=== PATIENT | male | born 1935 | race Caucasian/White ===

== ENCOUNTER 2019-11-07 17:09 | Inpatient (IN) | payer MEDICARE ==
[2019-11-07] VITALS (13 sets, daily range): BP systolic 137–182; BP diastolic 73–88
[~2019-11-07] VITALS: Ht 175.3 cm; Wt 60.6 kg
--- NOTE | ~2019-11-07 | EMS ---
[place] [address] EMS Patient Care Report Name: ZARIA VILLEDA Room: [address] IN [facility]#: [id number] Admission: 11/07/19 Attend Phys: Brody Conde Discharge: Date of : 37 Report #: [id number] THIS REPORT FOR: //name// Report Transmitted: 11/07/2019 22:32 EMS Care Summary [facility]ident [id number] @ 11/07/2019 16:35 Incident Location [address] [place] [address] Patient ZARIA VILLEDA Male, 84 Years 1935 Patient Address [address] [place] [address] Patient History Juarez's-Palsy,Myocardial Infarction (ID), Patient Allergies No known allergies, Patient Medications Metoprolol, Aspirin, Amlodipine, Ramipril, Chief Complaint "I think I got too hot" Disposition Transported [place] Reason Unconscious/Fainting Transported To [facility] Narrative Dispatched: Med 1 was toned for an unresponsive male, possible heat exhaustion. Chief Complaint/Condition: The patient was found seated in a chair in his living room. He was leaning to the left with notable [place] [address] EMS Patient Care Report Name: ZARIA VILLEDA Room: [address] IN [facility]#: [id number] Admission: 11/07/19 Attend Phys: Brody Conde Discharge: Date of : 37 Report #: [id number] facial droop. The patient had a left vision cut. The patient complained of "maybe getting too hot." History of Present Illness/Injury: According to family, the patient [place]. He and his entered their home around 16:00 when the noted he seemed, "off." She left the room and came back to find the patient leaning to the left and unresponsive. She called family and 911 at that time. Assessment: The patient was a male in his 80's, A/O x2, GCS 13 on initial contact. Airway patent, breathing clear, equal, and regular. CMS present with left sided paralysis noted. Skin pink, warm, and dry. Positive CPHSS and MEND Exam. See section for further. Reason for Ambulance: The patient was experiencing symptoms consistent with a stroke. He was transported to [facility] due to his age/heart history for Level 2 stroke care. Treatments: CPHSS/MEND Exam performed and found positive. EKG/12 lead performed with varying rhythms noted. See vitals section. IV therapy performed bilaterally. Blood draw performed. See section for further. Summary: Med 1 arrived on scene and performed patient assessment. Vitals obtained along with stroke scale. Patient found positive on scale. Patient information gathered and he was loaded into the ambulance via stretcher. Transport initiated emergent to [facility]. Further treatments and assessments were performed en route. [facility] informed Med 1 that they were experiencing high call volume. Family notified and transport redirected to [facility]. Report called with no further orders. The patient became more alert but still had deficits noted. The patient was delivered to CT upon arrival and sheet transferred. Report given to staff and signatures were obtained. Med 1 gathered paperwork and cleared the facility. Initial Vitals @16:55P: 82,R: 16,BP: 137/79,GCS: 13,SpO2: 96,Revised Trauma: 12, @17:20R: 18,BP: 143/85,GCS: 14,Revised Trauma: 12, @16:47BP: 140/64,GCS: 15,Glucose: 208,SpO2: 94, @17:10P: 81,R: 16,BP: 135/81,GCS: 14,SpO2: 96,Revised Trauma: 12, @17:15P: 77,R: 16,GCS: 14,SpO2: 94, @17:00P: 85,R: 16,GCS: 14, Assessments @16:41MENTAL:Confused,Person Oriented,Place Oriented,SKIN:HEENT:Head/Face: Facial Droop,Eyes: Left: Other,LUNG SOUNDS:ABDOMEN:PELVIS//GI:EXTREMITIES:Left Arm: Weakness,Left Arm: Paralysis,Left Leg: Paralysis,Left Leg: Weakness,PULSE:Radial: 1+ [place] [address] EMS Patient Care Report Name: ZARIA VILLEDA Johanna Room: [address] IN [facility]#: [id number] Admission: 11/07/19 Attend Phys: Brody Conde Discharge: Date of : 37 Report #: [id number] Thready,NEURO:Weakness Left-Sided,Slurred Speech,Abnormal Gait,Facial Droop,@17:10MENTAL:Person Oriented,Event Oriented,Place Oriented,Other,SKIN:HEENT:Head/Face: Facial Droop,Eyes: Left: Other,LUNG SOUNDS:ABDOMEN:PELVIS//GI:EXTREMITIES:Left Arm: Paralysis,Left Arm: Weakness,Left Leg: Paralysis,Left Leg: Weakness,PULSE:Radial: 1+ Th[place],NEURO:Weakness Left-Sided,Facial Droop,Slurred Speech, Impression Stroke Procedures @17:09Oxygen FlowRate: 2 Device: Nasal Cannula (NC) Response: ImprovedSucceeded@17:16Saline Lock 10cc (20 ga) Site: Antecubital-LeftResponse: UnchangedSucceeded@17:02Saline Lock 10cc (18 ga) Site: Hand-RightResponse: UnchangedSucceeded@17:03 cc (18 ga) Site: Hand-RightResponse: UnchangedSucceeded@17:09Stroke AlertResponse: Unchanged@17:0012-Lead ECGResponse: UnchangedSucceeded@16:41ALS AssessmentResponse: UnchangedSucceeded Timeline 16:35,Call Received 16:35,Dispatched 16:36,En Route 16:40,On Scene 16:41,At Patient 16:41,ALS Assessment,Response: UnchangedSucceeded, 16:47,BP: 140/64 M,PULSE: ,RR: R,SPO2: 94 Ox,ETCO2: ,B,PAIN: ,GCS: 15, 16:52,Depart Scene 16:55,BP: 137/79 M,PULSE: 82,RR: 16 R,SPO2: 96 Ox,ETCO2: ,BG: ,PAIN: ,GCS: 13, 17:00,12-Lead ECG,Response: UnchangedSucceeded, 17:00,BP: / M,PULSE: 85,RR: 16 R,SPO2: Ox,ETCO2: ,BG: ,PAIN: ,GCS: 14, 17:02,Saline Lock 10cc 18 ga Site: Hand-Right,Response: UnchangedSucceeded, 17:03, cc 18 ga Site: Hand-Right,Response: UnchangedSucceeded, 17:09,Stroke Alert,Response: Unchanged 17:09,Oxygen FlowRate: 2 Device: Nasal Cannula (NC) Response: ImprovedSucceeded, 17:10,BP: 135/81 M,PULSE: 81,RR: 16 R,SPO2: 96 Ox,ETCO2: ,BG: ,PAIN: ,GCS: 14, 17:15,BP: / M,PULSE: 77,RR: 16 R,SPO2: 94 Ox,ETCO2: ,BG: ,PAIN: ,GCS: 14, 17:16,Saline Lock 10cc 20 ga Site: Antecubital-Left,Response: UnchangedSucceeded, 17:19,At Destination 17:20,BP: 143/85 M,PULSE: ,RR: 18 R,SPO2: Ox,ETCO2: ,BG: ,PAIN: ,GCS: 14, 17:59,Call Closed Disclaimer v1.1 Copyright 2020 [employer] This EMS Care Summary contains data elements from the applicable legal record (which may be displayed differently). It is [place] [address] EMS Patient Care Report Name: ZARIA VILLEDA Room: [address] IN [facility]#: [id number] Admission: 11/07/19 Attend Phys: Brody Conde Discharge: Date of : 37 Report #: [id number] information for the following purposes: continuity of care, clinical quality, and state data reporting. The complete legal record is available to ED staff and administrators of the receiving hospital in [facility]'s Patient Tracker. All data is provided "as is."
--- NOTE | 2019-11-07 17:25 | NUR ---
CODE STROKE ACTIVATED FROM THE FIELD AT 1707. SEE CODE STROKE PAPERWORK.
[2019-11-07 17:39] LABS: ABSOLUTE BASOPHILS 0.1 thou/uL (0.0-0.2); ABSOLUTE LYMPHOCYTES 1.1 thou/uL (0.8-5.3); ABSOLUTE MONOCYTES 1.1 thou/uL (0.0-1.2); ABSOLUTE NEUTROPHILS 10.4 thou/uL (1.6-8.1); BASOPHILS 0.8 %; EOSINOPHILS 0.2 %; HEMATOCRIT 44.4 % (42.0-52.0); HEMOGLOBIN 14.9 gm/dL (14.0-18.0); LYMPHOCYTES 8.6 %; MCH 30.7 pg (26.0-34.0); MCHC 33.5 g/dL (28.0-37.0); MCV 91.7 fL (80.0-100.0); MONOCYTES 8.5 %; MPV 8.1 fl. (7.2-11.1); NUCLEATED RBCS 0 /100WBC; PLATELET COUNT* 208 thou/uL (150-400); POLYS 81.9 %; RBC 4.84 mil/uL (4.50-6.00); RDW-CV 16.1 % (10.5-14.5); WBC 12.7 thou/uL (4.0-11.0)
[2019-11-07 17:48] LABS: CALCIUM 9.9 mg/dL (8.5-10.1); CREATININE 1.7 mg/dL (0.6-1.3); POTASSIUM 4.7 mmol/L (3.5-5.1)
[2019-11-07 17:49] LABS: APTT 28.2 Seconds (25.0-31.3); INR 1.1; PROTIME 11.2 Seconds (9.20-11.50)
[2019-11-07] MEDS ORDERED: NORVASC 2.5 MG2.5 M1 PO (17:49)
[2019-11-07] MEDS ORDERED: METOPROLOL SUCC50 MG PO (17:49)
[2019-11-07] MEDS ORDERED: ASA81BEC PO (17:49)
[2019-11-07] MEDS ORDERED: ALTACE 1.25 M1.25 MG PO (17:50)
[2019-11-07 17:57] LABS: ALBUMIN 3.6 g/dL (3.4-5.0); TOTAL BILIRUBIN 0.6 mg/dL (<0.1-1.0); TOTAL PROTEIN 6.9 g/dL (6.4-8.2)
--- NOTE | 2019-11-07 21:00 | NUR ---
PT. ADMITTED TO BED 5 AT 1945. ALERT AND ORIENTED 84 YEAR OLD MALE POST CVA/POST TPA. LEFT SIDED WEAKNESS NOTED-SEE ASSESSMENT. ORIENTED TO ROOM, CALL LIGHT. WILL CONTINUE TO MONITOR.
[2019-11-08] VITALS (24 sets, daily range): BP systolic 125–177; BP diastolic 68–101
--- NOTE | 2019-11-08 05:11 | NUR ---
DR. RIZZO IN TO ASSESS PT. THIS SHIFT. WANTED STAT MRI, PT. 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 STATED HE HAS ALSO HAD A AAA. INFORMED THIS NURSE THAT HE DOES NOT SMOKE AND HASN'T SMOKED FOR 20+ YEARS AND HE DRINKS [address] RIZZO IN, PT. STATED HE SMOKES 2 CIGARETTES DAILY AND IS A "CLOSET SMOKER", ALSO STATED TO DR. RIZZO HE DRINKS "A COUPLE BEERS A DAY". THIS RN CALLED AND LEFT VOICEMAIL FOR HIS , NOEMY, AND GAVE CALL BACK INFORMATION. DR. RIZZO STATED HE WOULD LIKE TO GET A HISTORY FROM THE BEFORE MRI IS DONE. WILL CONTINUE TO MONITOR.
--- NOTE | 2019-11-08 05:15 | NUR ---
PT. CONTINUES TO MISS URINAL AND HAS REQUIRED 2 BED CHANGES. INFORMED PT. TO USE CALL LIGHT SO NURSE CAN HELP ASSIST. VERBAL UNDERSTANDING STATED.
[2019-11-08 08:39] LABS: ALBUMIN 3.6 g/dL (3.4-5.0); ALKALINE PHOSPHATASE 84 U/L (46-116); ANION GAP 10 mmol/L (7-16); BUN 17 mg/dL (7-18); CALCIUM 9.7 mg/dL (8.5-10.1); CHLORIDE 104 mmol/L (98-107); CHOLESTEROL 152 mg/dL (<200); CO2 25 mmol/L (21-32); GLUCOSE 111 mg/dL (70-99); HDL CHOLESTEROL 84 mg/dL (>40); LDL CHOLESTEROL 58 mg/dL (<100); SGOT 23 U/L (15-37); SGPT 22 U/L (30-65); SODIUM 139 mmol/L (136-145); TC:HDL 1.8 Ratio (Not establshd); TOTAL BILIRUBIN 0.8 mg/dL (<0.1-1.0); TOTAL PROTEIN 6.9 g/dL (6.4-8.2); TRIGLYCERIDE 52 mg/dL (<150); VLDL 10 mg/dL (<40)
[2019-11-08 08:40] LABS: SERUM ASSESSMENT Clear
--- NOTE | 2019-11-08 10:49 | EKG ---
[place] [address] ELECTROCARDIOGRAM REPORT Name: ZARIA VILLEDA Room: [address] ADM IN .R.#: [id number] Admission: 11/07/19 Attend Phys: Adriel Hernandez Discharge: Date of : 37 Date of Service: 11/07/19 1841 Report #: [id number] THIS REPORT FOR: //name// [facility] ED Test Date: 2019-11-07 Test Time: 18:41:42 Pat Name: ZARIA VILLEDA Department: Room: [facility] Gender: M Zinc Chloride Operator: NISHANT : 1935 Requested By: Chidi Modi Order Number: [id number] MD: Leon Holguin Measurements Intervals [place] Rate: 71 P: 0 IN: 31 QRS: 62 QRSD: 151 T: 38 QT: 484 QTc: 527 Interpretive Statements sinus rhythm with pac's artifact noted nonspecific intraventricular conduction defect No previous ECG available for comparison Electronically Signed On 11-08-2019 10:48:52 CDT by Leon Holguin [email or web address] <ELECTRONICALLY SIGNED> By: Leon Holguin MD, [facility] 11/08/19 1048 1841 1841 Leon Holguin MD, [facility] /EPI
--- NOTE | 2019-11-08 10:50 | EKG ---
[place] [address] ELECTROCARDIOGRAM REPORT Name: ZARIA VILLEDA Room: [address] ADM IN .R.#: [id number] Admission: 11/07/19 Attend Phys: Adriel Hernandez Discharge: Date of : 37 Date of Service: 11/07/191856 Report #: [id number] THIS REPORT FOR: //name// [facility] ED Test Date: 2019-11-07 Test Time: 18:57:36 Pat Name: ZARIA VILLEDA Department: Room: [address] Gender: M Parts Consultant: TONNY : 1935 Requested By: Chidi Modi Order Number: [id number] Reading MD: Leon Holguin Measurements Intervals [place] Rate: 58 P: 105 MD: 140 QRS: 49 QRSD: 136 T: 4 QT: 454 QTc: 446 Interpretive Statements atrial fibrillation artifact noted Nonspecific intraventricular conduction delay Borderline repolarization abnormality Electronically Signed On 11-08-2019 10:49:55 CDT by Leon Holguin [email or web address] <ELECTRONICALLY SIGNED> By: Leon Holguin MD, [facility] 11/08/19 1049 56 56 eLon Holguin MD, FAC /EPI
[2019-11-08 13:00] LABS: ABSOLUTE MONOCYTES 0.8 thou/uL (0.0-1.2); ABSOLUTE NEUTROPHILS 8.4 thou/uL (1.6-8.1); BASOPHILS 0.3 %; EOSINOPHILS 0.3 %; HEMATOCRIT 32.7 % (42.0-52.0); LYMPHOCYTES 9.4 %; MCHC 33.6 g/dL (28.0-37.0); MCV 92.2 fL (80.0-100.0); MONOCYTES 7.7 %; MPV 7.7 fl. (7.2-11.1); NUCLEATED RBCS 0 /100WBC; POLYS 82.3 %; RBC 3.54 mil/uL (4.50-6.00); RDW-CV 15.9 % (10.5-14.5); WBC 10.2 thou/uL (4.0-11.0)
[2019-11-08 13:01] LABS: PLATELET COUNT* 119 thou/uL (150-400)
[2019-11-08 13:12] LABS: BUN 9 mg/dL (7-18); CHLORIDE 122 mmol/L (98-107); CO2 14 mmol/L (21-32); CREATININE 0.3 mg/dL (0.6-1.3); GLUCOSE 57 mg/dL (70-99)
[2019-11-08 13:13] LABS: ANION GAP 12 mmol/L (7-16); SODIUM 148 mmol/L (136-145)
[2019-11-08 13:15] LABS: CALCIUM < 5.0 mg/dL (8.5-10.1); POTASSIUM 1.5 mmol/L (3.5-5.1)
[2019-11-08 14:03] LABS: ALBUMIN 3.1 g/dL (3.4-5.0); CREATININE 0.9 mg/dL (0.6-1.3); TOTAL BILIRUBIN 0.8 mg/dL (<0.1-1.0); TOTAL PROTEIN 6.2 g/dL (6.4-8.2)
[2019-11-08 14:06] LABS: CALCIUM 8.9 mg/dL (8.5-10.1)
[2019-11-08 14:08] LABS: POTASSIUM 3.4 mmol/L (3.5-5.1)
--- NOTE | 2019-11-08 15:01 | NUR ---
ICU rounds: Pt had a CVA while raking hay. Normally independent. Left sided neglect and weakness. MRI this AM. CT this afternoon. NIH is 6. Rehab consulted. Pt asleep when CM went to assess. CHEESH-NA and unable to answer any questions via phone.
[2019-11-08 15:15] LABS: HEMATOCRIT 44.4 % (42.0-52.0); MCH 30.4 pg (26.0-34.0); MCHC 33.3 g/dL (28.0-37.0); MCV 91.4 fL (80.0-100.0); MPV 8.6 fl. (7.2-11.1); RBC 4.85 mil/uL (4.50-6.00); RDW-CV 16.2 % (10.5-14.5); WBC 13.6 thou/uL (4.0-11.0)
[2019-11-08 15:21] LABS: HEMOGLOBIN 14.8 gm/dL (14.0-18.0)
--- NOTE | 2019-11-08 18:52 | NUR ---
ASSESSMENT CHARTED. VSS. PATIENT REMAINS A 6 ON THE MODIFIED STROKE SCALE. MRI COMPLETE AND 2ND CT SCAN COMPLETE PER PROTOCOL. PATIENT UP WITH ASSIST. PT/OT SEEN PATIENT. ST ALSO SEEN PATIENT AND CLEARED HIM FOR REGULAR DIET AND THIN LIQUIDS. NO FURTHER CONCERNS AT THIS TIME. WILL CONTINUE TO MONITOR AND CARE PER PLAN OF CARE.
[2019-11-09] VITALS (16 sets, daily range): BP systolic 97–171; BP diastolic 54–96
--- NOTE | 2019-11-09 06:43 | NUR ---
ASSUMED PATEINT CARE AT 1900. PATIENT ALERT AND ORIENTED TIMES FOUR. LEFT SIDED WEAKNESS GETTING BETTER. NO COMPLAINTS OF PAIN IR DISCOMFORT NOTED. RN ASSESSMENTS AND NIH SCALE COMPLETED DOCUMENTED. PATIENT UP TO BSC SEVERAL TIMES THROUGH THE NIGHT. ABLE TO TRANSFER SELF TO BSC AND BACK TO BED WITH NO ASSISSTANCE. WILL CONTINUE TO MONITOR.
[2019-11-09 09:01] LABS: ALBUMIN 3.2 g/dL (3.4-5.0); CALCIUM 9.2 mg/dL (8.5-10.1); CREATININE 0.8 mg/dL (0.6-1.3); POTASSIUM 3.8 mmol/L (3.5-5.1); TOTAL BILIRUBIN 0.9 mg/dL (<0.1-1.0); TOTAL PROTEIN 6.4 g/dL (6.4-8.2)
[2019-11-09 09:20] LABS: ABSOLUTE BASOPHILS 0.1 thou/uL (0.0-0.2); ABSOLUTE MONOCYTES 0.9 thou/uL (0.0-1.2); ABSOLUTE NEUTROPHILS 10.3 thou/uL (1.6-8.1); BASOPHILS 0.6 %; EOSINOPHILS 0.3 %; HEMATOCRIT 45.8 % (42.0-52.0); HEMOGLOBIN 15.3 gm/dL (14.0-18.0); MCH 30.6 pg (26.0-34.0); MCHC 33.5 g/dL (28.0-37.0); MCV 91.4 fL (80.0-100.0); MONOCYTES 7.3 %; MPV 8.6 fl. (7.2-11.1); NUCLEATED RBCS 0 /100WBC; PLATELET COUNT* 169 thou/uL (150-400); POLYS 83.8 %; RBC 5.01 mil/uL (4.50-6.00); RDW-CV 15.7 % (10.5-14.5); WBC 12.3 thou/uL (4.0-11.0)
--- NOTE | 2019-11-09 11:59 | NUR ---
ICU rounds: Tele status. Rehab to eval and initiate insurance auth. CM spoke with Pt and dtr in room. Pt resides at home with . Normally active and independent. No DME. No hx of HH or SNF. Discussed plan for acute rehab at dc. Per dtr, between , 2 kids, friends and neighbors, Pt has ample support at home post dc from acute rehab at dc if needed.
--- NOTE | 2019-11-09 14:20 | NUR ---
PT ORIENTED TO ROOM AND UNIT, BED LOW AND LOCKED, SIDE RAILS UPX3, CALL LIGHT IN REACH. TELE APLIED. WILL CONTINUE TO ASSESS.
--- NOTE | 2019-11-09 14:33 | NUR ---
PATIENT TO ROOM 223 AT 1345
--- NOTE | 2019-11-09 14:46 | NUR ---
Cardiac Rehab. Stroke Education completed with receptive patient using the Stroke Education folder. Education included types of strokes, signs and symptoms of stroke, when to call 911, personal risk factor reduction including smoking cessation. Patient plans to use "[place]"method to stop smoking.
--- NOTE | 2019-11-09 16:39 | EKG ---
[place] [address] ELECTROCARDIOGRAM REPORT Name: HENRIQUE VILLEDAOLGA Spencer Room: [address] ADM IN M.R.#: [id number] Admission: 11/07/19 Attend Phys: Adriel Hernandez Discharge: Date of : 37 Date of Service: 11/09/19 1631 Report #: [id number] THIS REPORT FOR: //name// [facility] Test Date: 2019-11-09 Test Time: 16:31:04 Pat Name: ZARIA VILLEDA Department: Room: [address] Gender: M Pacu Rn: NELLY : 1935 Requested By: Adriel Hernandez Order Number: [id number] Reading MD: Leon Holguin Measurements Intervals [place] Rate: 62 P: 6 NE: 52 QRS: 58 QRSD: 117 T: 58 QT: 436 QTc: 443 Interpretive Statements Sinus rhythm Supraventricular bigeminy Low voltage, extremity leads Probable LVH with secondary repol abnrm Compared to ECG 11/07/2019 18:57:36 Atrial premature complex(es) now present Low QRS voltage now present Atrial fibrillation no longer present Electronically Signed On 11-09-2019 16:38:55 CDT by Leon Holguin [email or web address] <ELECTRONICALLY SIGNED> By: Leon Holguin MD, [facility] 11/09/19 1638 163 163 Leon Holguin MD, [facility] /EPI
[2019-11-10] VITALS: BP 152/81
[2019-11-10 04:44] LABS: ABSOLUTE BASOPHILS 0.1 thou/uL (0.0-0.2); ABSOLUTE EOSINOPHILS 0.1 thou/uL (0.0-0.7); ABSOLUTE LYMPHOCYTES 1.3 thou/uL (0.8-5.3); ABSOLUTE MONOCYTES 1.2 thou/uL (0.0-1.2); ABSOLUTE NEUTROPHILS 8.2 thou/uL (1.6-8.1); BASOPHILS 0.5 %; EOSINOPHILS 0.7 %; HEMATOCRIT 42.2 % (42.0-52.0); HEMOGLOBIN 14.3 gm/dL (14.0-18.0); LYMPHOCYTES 12.1 %; MCH 30.8 pg (26.0-34.0); MCV 90.6 fL (80.0-100.0); MPV 8.3 fl. (7.2-11.1); NUCLEATED RBCS 0 /100WBC; PLATELET COUNT* 164 thou/uL (150-400); POLYS 75.7 %; RBC 4.66 mil/uL (4.50-6.00); RDW-CV 15.9 % (10.5-14.5); WBC 10.8 thou/uL (4.0-11.0)
[2019-11-10 04:58] LABS: ALBUMIN 2.8 g/dL (3.4-5.0); CALCIUM 9.2 mg/dL (8.5-10.1); CREATININE 0.9 mg/dL (0.6-1.3); POTASSIUM 3.5 mmol/L (3.5-5.1); TOTAL BILIRUBIN 0.7 mg/dL (<0.1-1.0); TOTAL PROTEIN 5.9 g/dL (6.4-8.2)
[2019-11-10 08:00] VITALS: BP 138/90
--- NOTE | 2019-11-10 11:10 | NUR ---
Canvas Shop Laborer: Met with patient this morning. Observed walking in pardo with PT. Required ques to look to the left. Able to raise left arm, with drift and weakness. Left pediatric geneticist 50%. Reviewed plan for rehab and surgery later date. understands plan presented to him by neurology. Answered questions. Reinforced stroke education.
[2019-11-10 12:00] VITALS: BP 157/97
--- NOTE | 2019-11-10 14:20 | NUR ---
PER [facility]HAB LIASON, INPT.REHAB CAN ACCEPT PT.PENDING INSURNACE AUTH. NOTIFIED [facility] THAT WANTS TO REPEAT CT HEAD IN AM.
[2019-11-10 15:55] VITALS: BP 141/74
--- NOTE | 2019-11-10 18:51 | NUR ---
PT. AOX4, SR PACS ON MONITOR, DENIES PAIN. UP AD MORAIMA TO BATHROOM WITH ASSISTX1. NIH ASSESSED, SCORE 5. PT. UP TO CHAIR, TOLERATED WELL. HOURLY ROUNDING PERFORMED. CALL LIGHT AND PERSONAL BELONGINS PLACED WITHIN REACH. PT IN BED, WATCHING TV AT THI TIME, IN NO APPARENT DISTRESS.
[2019-11-10 19:50] VITALS: BP 159/80
[2019-11-11 00:18] VITALS: BP 143/97
[2019-11-11 04:43] VITALS: BP 154/87
--- NOTE | 2019-11-11 05:28 | NUR ---
PATIENT PROGRESSING TOWARDS GOALS: PATIENT ABLE TO AMBULATE WITH ASSIST X1. NIH CHARTED. PATIENT'S BELONGINGS POSITIONED TO RIGHT SIDE DUE TO LEFT SIDED NEGLET. PATIENT DENIES PAIN. CALL LIGHT WITHIN REACH
[2019-11-11 05:33] LABS: ABSOLUTE BASOPHILS 0.1 thou/uL (0.0-0.2); ABSOLUTE EOSINOPHILS 0.1 thou/uL (0.0-0.7); ABSOLUTE LYMPHOCYTES 1.2 thou/uL (0.8-5.3); ABSOLUTE MONOCYTES 0.9 thou/uL (0.0-1.2); BASOPHILS 0.7 %; HEMATOCRIT 42.7 % (42.0-52.0); HEMOGLOBIN 14.6 gm/dL (14.0-18.0); LYMPHOCYTES 11.5 %; MCH 30.9 pg (26.0-34.0); MCV 90.7 fL (80.0-100.0); MONOCYTES 9.2 %; MPV 8.5 fl. (7.2-11.1); NUCLEATED RBCS 0 /100WBC; PLATELET COUNT* 165 thou/uL (150-400); POLYS 77.6 %; RBC 4.71 mil/uL (4.50-6.00); RDW-CV 15.5 % (10.5-14.5); WBC 10.3 thou/uL (4.0-11.0)
[2019-11-11 05:49] LABS: ALBUMIN 2.9 g/dL (3.4-5.0); CALCIUM 9.5 mg/dL (8.5-10.1); CREATININE 0.9 mg/dL (0.6-1.3); POTASSIUM 3.4 mmol/L (3.5-5.1); TOTAL BILIRUBIN 0.8 mg/dL (<0.1-1.0); TOTAL PROTEIN 6.1 g/dL (6.4-8.2)
[2019-11-11 08:06] VITALS: BP 144/85
--- NOTE | 2019-11-11 12:33 | NUR ---
rehab quan schmid, updated cm that pt's insurance wants ST cog eval, so she asked the nurse to put in the order. cm to cont to follow.
[2019-11-11 13:22] VITALS: BP 164/86
--- NOTE | 2019-11-11 17:18 | NUR ---
ASSUMED PT CARE AT 1230, PT RESTING IN BED, NO C/O PAIN INITIALLY BUT HAD SOME C/O HEADACHE AFTER HAVING A SHOWER THIS AFTERNOON, TREATED W/ PRN TYLENOL W/ RELIEF. PT IS A&OX4 BUT FORGETFUL. PT IS UP W/ 1 AND WAS CLEARED TO WORK W/ PT AND OT TODAY, WORKED W/ BOTH. PT IS AWAITING INSURANCE APPROVAL TO TRANSFER UP TO REHAB. PT HAS SOME L SIDED DEFICIT R/T CVA. AM ASSESSMENT CHARTED, MEDS PER MAR, HOURLY ROUNDING OBSERVED, FALL PRECAUTIONS IN PLACE, CALL LIGHT W/IN REACH, WILL CONTINUE POC.
[2019-11-11 17:39] VITALS: BP 129/71
--- NOTE | 2019-11-11 18:19 | NUR ---
NO ACUTE CHANGES THROUGHOUT SHIFT, PT STILL AWAITING INSURANCE APPROVAL FOR REHAB TRANSFER. HOURLY ROUNDING OBSERVED, FALL PRECAUTIONS IN PLACE, CALL LIGHT W/IN REACH, PT HAD DAUGHTER IN ROOM W/ HIM ALL SHIFT, WILL CONTINUE POC.
[2019-11-11 19:30] VITALS: BP 145/82
[2019-11-12] VITALS: BP 132/75
[2019-11-12 04:00] VITALS: BP 147/87
--- NOTE | 2019-11-12 05:47 | NUR ---
PATIENT PROGRESSING TOWARDS GOALS: PATIENT AMBULATING WITH MINIMAL ASSIST, STILL WITH LEFT SIDED WEAKNESS BUT APPEARS TO BE IMPROVING. PATIENT HAS LEFT SIDED NEGLET- ENCOURAGED TO ATTEND TO LEFT SIDE. PATIENT DENIES PAIN AND DISCOMFORT THROUGHOUT SHIFT. CALL LIGHT WITHIN REACH
[2019-11-12 08:00] VITALS: BP 147/73
[2019-11-12 12:00] VITALS: BP 126/78
[2019-11-12] MEDS ORDERED: ASPIRIN325 PO (13:59)
[2019-11-12] MEDS ORDERED: NORVASC5 M1 PO (14:03)
[2019-11-12] MEDS ORDERED: RAMIPRIL10 MG PO (14:04)
[2019-11-12] MEDS ORDERED: SIMVASTATIN40 MG PO (14:06)
--- NOTE | 2019-11-12 14:55 | NUR ---
PT VS CHARTED, SB ON TELE, A&OX4, ROOM AIR, NIH-9- LEFT SIDED WEAKNESS AND DRIFT AND NEGLECT COMPLETE LEFT SIDED HEMIANOPIA, UP WITH ONE, NO IV- MISC. ORDER PLACED, PT WAITING FOR PLACEMENT IN REHAB, HOURLY ROUNDING PERFORMED, POSSESSIONS AND CALL LIGHT WITHIN REACH.
[2019-11-12 15:48] VITALS: BP 125/59
[2019-11-12 20:30] VITALS: BP 141/81
[2019-11-13] VITALS: BP 141/78
[2019-11-13 04:00] VITALS: BP 138/80
--- NOTE | 2019-11-13 06:15 | NUR ---
PT CARE ASSUMED AT 1930. SAT MAINTAINED IN RA. ALERT AND ORIENTED X4 BUT FORGETFUL. DENIES PAIN AND SOB. CALL LIGHT WITHIN REACH AND BED IN LOW POSITION. HOURLY ROUNDING DONE FOR PT SAFETY.
[2019-11-13 08:00] VITALS: BP 165/81
[2019-11-13 13:38] VITALS: BP 167/81
--- NOTE | 2019-11-13 19:00 | NUR ---
PT. AOX4, VSS, SR ON TELE, DENIES PAIN, UP WITH ASSISTX1 TO BATHROOM. HOURLY ROUNDING PERFORMED. CALL LIGHT AND PERSONAL BELONGINGS PLACED WITHIN REACH. PT. IN BED, WATHCING TV AT THIS TIME.
[2019-11-13 20:15] VITALS: BP 144/88; BP 147/80
[2019-11-14 00:11] VITALS: BP 144/88
--- NOTE | 2019-11-14 06:45 | NUR ---
PT RESTED WELL THROUGHOUT HOURLY ROUNDS, PT UP TO BATHROOM X2 WITH WALKER TOLERATED WELL. NO CHANGES NOTED IN PT ASSESSMENT.
[2019-11-14 08:00] VITALS: BP 158/89
[2019-11-14] MEDS ORDERED: PLAVIX 75 MG TA75 MG PO (09:14)
[2019-11-14] MEDS ORDERED: ADULT LOW DOSE81 MG PO (09:14)
[2019-11-14] MEDS ORDERED: LIPITOR40 MG PO (09:14)
[2019-11-14 11:30] VITALS: BP 140/74
--- NOTE | 2019-11-14 15:09 | NUR ---
[facility] SAID STILL PENDING REHAB AUTH FOR ACUTE INPT.REHAB. INSURANCE REQUESTED UPDATED THERAPY NOTES THIS AM,WHICH SHE SENT IN. HOPEFULLY WILL HEAR TODAY. MAYRA TALBOT RELAYED INFORMATION TO PT/FAMILY.
--- NOTE | 2019-11-14 15:25 | NUR ---
VS CHARTED, A&OX4, ROOM AIR, LEFT SIDED WEAKNESS AND HEMIANOPIA, UP WITH ONE/WALKER AND GAIT BELT, NO IV- WAITING FOR INSURANCE AUTH FOR REHAB UPSTAIRS. HOURLY ROUNDING PERFORMED, POSSESSIONS AND CALL LIGHT WITHIN REACH.
[2019-11-14 16:11] VITALS: BP 125/62
[2019-11-14 20:00] VITALS: BP 103/65
[2019-11-15 00:26] VITALS: BP 116/67
[2019-11-15 05:26] VITALS: BP 137/75
--- NOTE | 2019-11-15 06:18 | NUR ---
ASSESSMENTS COMPLETED AT BEDSIDE, PLEASE SEE CHARTING FOR DETAILS. MEDICATIONS ADMINISTERED PER MAR. HOURLY ROUNDING COMPLETED FOR SAFETY. CURRENTLY RESTING IN BED WITH CALL LIGHT WITHIN REACH. ALL CURRENT NEEDS HAVE BEEN MET.
[2019-11-15 08:00] VITALS: BP 125/80
--- NOTE | 2019-11-15 15:19 | NUR ---
In rehab received insurance authorization for pt to transition to rehab today.
[2019-11-15 16:32] VITALS: BP 130/62
[2019-11-15 16:53] VITALS: BP 130/62
--- NOTE | 2019-11-15 19:24 | NUR ---
PT. AOX4, VSS, DENIES PAIN, SR ON MONITOR. UP AD MORAIMA TO BATHROOM, STANDBY ASSIST. MEAL SETUP. HOURLY ROUNDING PERFORMED. CALL LIGHT AND PERSONAL BELONGINGS PLACED WITHIN REACH. SPOKE TO DAUGHTER RE: VISIT BY PT. DISTRAUGHT MISSING HER. TRANSFER TO REHAB ORDERS RECEIVED. REPORT GIVEN TO JODY NUNEZ. PT. LEFT FLOOR WITH PERSONAL BELONGINGS AFTER DINNER. PT. IN STABLE CONDITION WITH DISCHARGE PACKET, NO S/S OF DISTRESS AT TIME OF TRANSFER.
--- NOTE | 2019-11-16 12:39 | CON ---
[address] [address] CONSULTATION Name: ZARIA VILLEDA Room: [address] IN M.R.#: [id number] Admission: 11/07/19 Attend Phys: Brody Conde Discharge: 11/15/19 Date of : 37 Report #: [id number] THIS REPORT FOR: //name// cc: Chucky Quiñonez MD, Daljeet MD ~ THIS REPORT FOR: //name// CC: Chucky Hernandez DATE OF SERVICE: 11/07/2019 HISTORY OF PRESENT ILLNESS: This is an 84-year-old male patient who was seen by me for stroke. I saw this patient under my name and I did a routine check before sleeping and subsequently found out by reviewing the record that this patient had come to Emergency Room. He had presented with stroke-like symptoms. Because of nationwide outage of the [employer], they could not get hold of me and called the backup neurologist, Dr. Cevallos and consulted him. This patient had presented with diffuse and profound deficit and he was within the window for TPA and he was given TPA and he received TPA without any problem. From reviewing the records, it would appear that he may have become somewhat better, but he continued to have profound neurological deficit. The records from Emergency Room were reviewed. It looks like that the patient had presented with left-sided weakness. All the stroke scales there indicate that he also has hemianopsia. Dr. Cevallos was consulted for Neurology consult and he agreed with TPA. A CT angiogram was also done in the Emergency Room. That demonstrated multiple findings. It looks like the patient has right carotid stenosis. It also looks like that this patient has right vertebral artery stenosis. Surprisingly, the patient's perfusion scan is normal. Intracranial circulation for both middle and anterior cerebral arteries is also normal. REVIEW OF SYSTEMS: Indicate that he has coronary artery disease. He does have a history of hypertension. He smokes, but he smokes about 2 cigarettes a day. He does drink alcohol, but he drinks about 2 beers a day, but I am not sure how accurate that history is. That was his relevant 14-point review of systems. PAST MEDICAL HISTORY: Negative for any stroke, but does appear to be positive for hypertension and coronary artery disease. SOCIAL HISTORY: As described above. PHYSICAL EXAMINATION: Indicates he is alert. He is responsive. He can follow simple command. I do not think his speech is that much altered. Cranial nerve examination appeared to be having dense left hemianopsia[place] [address] CONSULTATION Name: ZARIA VILLEDA Room: [address]#: [id number] Admission: 11/07/19 Attend Phys: Brody Conde Discharge: 11/15/19 Date of : 37 Report #: [id number] deficit looks even more than that. That may be because he does not have his glasses with him and we need to do another examination once we get the glasses. 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 He has a pretty profound deficit of the left upper extremity where he can move, but the movement is very little. Left lower extremity, he does better where he is able to do antigravity. He can appreciate the position sense on the right side, but does not do it on the left side. In fact, his position sense appeared to be absent on the left side. His blood pressure is running about 161/81. His respirations are 22. Pulse is 75. LABORATORY DATA: Indicates white count is 12.7. His GFR is only 79. His glucose is 208. IMPRESSION: This patient appeared to have a CVA. Most likely, the CVA is in the right cerebral hemisphere because of the right carotid stenosis. The complicating factor is that the patient's CT perfusion was normal. That can occur in small CVAs, but clinically it looks like a large CVA. On top of that, the patient appeared to have a pretty dense hemianopsia. I think his right vertebral artery stenosis is probably an incidental finding, but I cannot be certain. We need an MRI to figure out what the further management should be in this patient. If MRI confirms that the patient has a right hemispheric CVA, then we need to address the right carotid. The right carotid needs to be addressed urgently if the CVA is small, but we may have to wait for dressing it if the CVA is large. If CVA is in the posterior fossa, then I think we need different management, but that appears unlikely, but needs to be excluded. I think the best is to get an MRI done to get some directions where we need to proceed with the treatment for that, and if the CVA is small, then I think urgent endarterectomy may have to be done. Clinically, it looks like a large CVA, but the perfusion does not show anything. This patient should have permissive hypertension. Once he is cleared by speech, he can take his home antihypertensive, but no additional antihypertensive should be given until the systolic blood pressure crosses 220. His GFR is low. He got significant amount of contrast. Because of that, I started him on fluids especially because he is n.p.o. He needs to be hydrated. I talked to him and he looks oriented and he says he has no contraindication for MRI, so I think we will proceed with MRI and decide about further [place] [address] CONSULTATION Name: ZARIA VILLEDA Johanna Room: [address] IN .R.#: [id number] Admission: 11/07/19 Attend Phys: Brody Conde Discharge: 11/15/19 Date of : 37 Report #: [id number] Thank you very much for this referral. We will follow this patient along with you. <ELECTRONICALLY SIGNED> By: Ming De Leon MD 11/16/19 1239 [id number] De Leon MD /nt
== END 2019-11-15 18:23 | DRG 61 ==
LOC: M.ERS 17:09 → M.TBA-ER 18:29 → M.ICU 18:29 → M.2W 18:29 → M.ICU 19:25 → M.2W 11-09 14:02
PROVIDERS: Family Medicine; ADMIT Internal Medicine; ATTEND Internal Medicine
DX: I63.231 Cerebral infarction due to unspecified occlusion or stenosis of right carotid arteries (principal); N17.0 Acute kidney failure with tubular necrosis; I61.2 Nontraumatic intracerebral hemorrhage in hemisphere, unspecified; F17.210 Nicotine dependence, cigarettes, uncomplicated; N18.3 Chronic kidney disease, stage 3 (moderate); I12.9 Hypertensive chronic kidney disease with stage 1 through stage 4 chronic kidney disease, or unspecified chronic kidney disease; D72.829 Elevated white blood cell count, unspecified; E86.0 Dehydration; E87.6 Hypokalemia; I25.10 Atherosclerotic heart disease of native coronary artery without angina pectoris; Z95.1 Presence of aortocoronary bypass graft; Z79.899 Other long term (current) drug therapy

== ENCOUNTER 2019-11-15 15:58 | Inpatient (IN) | payer MEDICARE ==
[~2019-11-15] VITALS: Ht 175.3 cm; Wt 59.9 kg
[~2019-11-15 15:58] MED LIST: ADULT LOW DOSE81 MG PO; ALTACE 1.25 M1.25 MG PO; ASA81BEC PO; ASPIRIN325 PO; LIPITOR40 MG PO; METOPROLOL SUCC50 MG PO; NORVASC 2.5 MG2.5 M1 PO; NORVASC5 M1 PO; PLAVIX 75 MG TA75 MG PO; RAMIPRIL10 MG PO; SIMVASTATIN40 MG PO
[2019-11-15 18:40] VITALS: BP 108/63
[2019-11-15 19:54] VITALS: BP 122/66
[2019-11-16 05:25] LABS: HEMATOCRIT 43.8 % (42.0-52.0); HEMOGLOBIN 14.8 gm/dL (14.0-18.0); MCH 30.7 pg (26.0-34.0); MCHC 33.8 g/dL (28.0-37.0); MCV 90.9 fL (80.0-100.0); MPV 7.7 fl. (7.2-11.1); RBC 4.81 mil/uL (4.50-6.00); RDW-CV 15.7 % (10.5-14.5); WBC 9.4 thou/uL (4.0-11.0)
[2019-11-16 05:29] LABS: CALCIUM 9.6 mg/dL (8.5-10.1); POTASSIUM 3.8 mmol/L (3.5-5.1)
[2019-11-16 08:57] VITALS: BP 132/70
[2019-11-16 19:00] VITALS: BP 99/60
[2019-11-17 08:00] VITALS: BP 134/69
[2019-11-17 20:31] VITALS: BP 110/55
[2019-11-18 08:20] VITALS: BP 139/76
[2019-11-18 20:26] VITALS: BP 112/59
[2019-11-19 07:30] VITALS: BP 123/68
[2019-11-19 20:24] VITALS: BP 122/59
[2019-11-20 07:57] VITALS: BP 148/71
[2019-11-20 19:15] VITALS: BP 112/64
[2019-11-21 08:30] VITALS: BP 116/63
[2019-11-21 20:00] VITALS: BP 133/65
[2019-11-22 07:30] VITALS: BP 109/66
[2019-11-22 20:00] VITALS: BP 107/56
[2019-11-23 08:30] VITALS: BP 131/70
[2019-11-23 19:25] VITALS: BP 128/67
[2019-11-24 08:00] VITALS: BP 120/71
[2019-11-24 17:37] VITALS: BP 120/71
[2019-11-24 20:13] VITALS: BP 117/62
[2019-11-25] MEDS ORDERED: COLACE100 MG PO (02:01)
[2019-11-25 08:00] VITALS: BP 102/71
[2019-11-25 10:08] VITALS: BP 120/71
[2019-11-25 13:35] VITALS: BP 120/71
== END 2019-11-25 11:30 | disposition home health service (06) | DRG 56 ==
LOC: M.REH 15:58
PROVIDERS: ADMIT Physical Medicine & Rehabilitation; ATTEND Physical Medicine & Rehabilitation
DX: I69.354 Hemiplegia and hemiparesis following cerebral infarction affecting left non-dominant side (principal); I63.9 Cerebral infarction, unspecified; N17.0 Acute kidney failure with tubular necrosis; I10 Essential (primary) hypertension; I25.10 Atherosclerotic heart disease of native coronary artery without angina pectoris; F17.210 Nicotine dependence, cigarettes, uncomplicated; I65.21 Occlusion and stenosis of right carotid artery; E86.0 Dehydration; E87.6 Hypokalemia; Z95.1 Presence of aortocoronary bypass graft; Z79.82 Long term (current) use of aspirin; Z79.899 Other long term (current) drug therapy

== ENCOUNTER 2019-12-10 23:29 | Inpatient (IN) | payer MEDICARE ==
[~2019-12-10] VITALS: Ht 175.3 cm; Wt 60.8 kg
[~2019-12-10 23:29] MED LIST changes: +COLACE100 MG PO; -NORVASC5 M1 PO
[2019-12-10 23:44] VITALS: BP 127/71
[2019-12-11] VITALS (10 sets, daily range): BP systolic 89–144; BP diastolic 56–81
[2019-12-11 00:07] LABS: ABSOLUTE LYMPHOCYTES 1.5 thou/uL (0.8-5.3)
[2019-12-11 00:09] LABS: ABSOLUTE NEUTROPHILS 7.3 thou/uL (1.6-8.1); HEMOGLOBIN 13.2 gm/dL (14.0-18.0)
[2019-12-11 00:13] LABS: INR 1.1
[2019-12-11 00:14] LABS: CALCIUM 9.7 mg/dL (8.5-10.1); CREATININE 1.4 mg/dL (0.6-1.3); POTASSIUM 5.2 mmol/L (3.5-5.1)
[2019-12-11 00:17] LABS: ABSOLUTE BASOPHILS 0.1 thou/uL (0.0-0.2); ABSOLUTE EOSINOPHILS 0.3 thou/uL (0.0-0.7); ABSOLUTE MONOCYTES 0.9 thou/uL (0.0-1.2); BASOPHILS 1.2 %; EOSINOPHILS 3.3 %; MCH 31.1 pg (26.0-34.0); MCHC 33.8 g/dL (28.0-37.0); MONOCYTES 9.1 %; MPV 8.6 fl. (7.2-11.1); NUCLEATED RBCS 0 /100WBC; PLATELET COUNT* 186 thou/uL (150-400); POLYS 71.4 %; RBC 4.24 mil/uL (4.50-6.00); RDW-CV 15.3 % (10.5-14.5); WBC 10.2 thou/uL (4.0-11.0)
[2019-12-11 00:18] LABS: ALBUMIN 3.4 g/dL (3.4-5.0); TOTAL BILIRUBIN 0.4 mg/dL (<0.1-1.0); TOTAL PROTEIN 6.4 g/dL (6.4-8.2)
[2019-12-11 10:25] LABS: HEMATOCRIT 36.8 % (42.0-52.0)
[2019-12-11 12:01] LABS: CREATININE 1.1 mg/dL (0.6-1.3); POTASSIUM 4.4 mmol/L (3.5-5.1)
[2019-12-12 04:18] VITALS: BP 119/70
[2019-12-12 04:27] VITALS: BP 123/73
[2019-12-12 04:52] LABS: ABSOLUTE BASOPHILS 0.1 thou/uL (0.0-0.2); ABSOLUTE EOSINOPHILS 0.2 thou/uL (0.0-0.7); ABSOLUTE LYMPHOCYTES 1.4 thou/uL (0.8-5.3); ABSOLUTE MONOCYTES 0.6 thou/uL (0.0-1.2); ABSOLUTE NEUTROPHILS 5.2 thou/uL (1.6-8.1); EOSINOPHILS 3.1 %; HEMATOCRIT 30.1 % (42.0-52.0); HEMOGLOBIN 10.3 gm/dL (14.0-18.0); MCH 31.2 pg (26.0-34.0); MCV 91.5 fL (80.0-100.0); MONOCYTES 8.2 %; MPV 7.9 fl. (7.2-11.1); NUCLEATED RBCS 0 /100WBC; PLATELET COUNT* 134 thou/uL (150-400); POLYS 68.7 %; RBC 3.29 mil/uL (4.50-6.00); RDW-CV 15.5 % (10.5-14.5); WBC 7.5 thou/uL (4.0-11.0)
[2019-12-12 04:58] LABS: CALCIUM 9.4 mg/dL (8.5-10.1); POTASSIUM 3.7 mmol/L (3.5-5.1)
[2019-12-12 08:00] VITALS: BP 118/75
--- NOTE | 2019-12-12 11:16 | EKG ---
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: OPAL : [id number] Requested By: Kashmir Ferreira Order Number: [id number] Sadie MD: Leon Holguin Measurements Intervals [place] Rate: 62 P: 22 WA: 171 QRS: 40 QRSD: 117 T: 18 QT: 452 QTc: 459 Interpretive Statements Sinus rhythm Atrial premature complexes nonspecific intraventricular conduction defect Borderline low voltage, extremity leads Baseline wander in lead(s) V2 Compared to ECG 11/09/2019 16:31:04 no change Electronically Signed On 12-12-2019 11:15:54 CDT by Leon Holguin [email or web address] <ELECTRONICALLY SIGNED> By: Leon Holguin MD, FAC 12/12/19 1115 0019 0019 Leon Holguin MD, FAC /EPI
[2019-12-12 12:12] VITALS: BP 125/68
[2019-12-12 15:56] VITALS: BP 117/70
[2019-12-12 20:00] VITALS: BP 136/89
[2019-12-13] VITALS: BP 137/72
[2019-12-13 04:00] VITALS: BP 127/78
[2019-12-13 04:30] LABS: HEMATOCRIT 28.3 % (42.0-52.0); HEMOGLOBIN 9.7 gm/dL (14.0-18.0); MCH 31.1 pg (26.0-34.0); MCHC 34.4 g/dL (28.0-37.0); MCV 90.3 fL (80.0-100.0); MPV 8.3 fl. (7.2-11.1); RBC 3.13 mil/uL (4.50-6.00); RDW-CV 15.2 % (10.5-14.5); WBC 6.6 thou/uL (4.0-11.0)
[2019-12-13 07:30] VITALS: BP 128/69
[2019-12-13 16:59] VITALS: BP 106/70
[2019-12-13 20:00] VITALS: BP 132/70
[2019-12-14] VITALS: BP 103/56
[2019-12-14 03:58] LABS: HEMATOCRIT 27.7 % (42.0-52.0); HEMOGLOBIN 9.6 gm/dL (14.0-18.0); MCH 31.4 pg (26.0-34.0); MCHC 34.5 g/dL (28.0-37.0); MPV 8.1 fl. (7.2-11.1); RBC 3.04 mil/uL (4.50-6.00); RDW-CV 15.4 % (10.5-14.5); WBC 8.6 thou/uL (4.0-11.0)
[2019-12-14 04:00] VITALS: BP 116/62
[2019-12-14 08:00] VITALS: BP 121/78
[2019-12-14] MEDS ORDERED: NORVASC5 M1 PO (11:15)
[2019-12-14 11:24] VITALS: BP 121/78
--- NOTE | 2019-12-15 01:49 | CON ---
[address] [address] CONSULTATION Name: ZARIA VILLEDA Room: [address]#: [id number] Admission: 12/13/19 Attend Phys: Brody Conde Discharge: 12/14/19 Date of : 37 Report #: [id number] THIS REPORT FOR: //name// cc: Chucky Quiñonez MD, Daljeet MD ~ THIS REPORT FOR: //name// CC: Kashmir Quiñonez DATE OF SERVICE: 12/12/2019 REASON FOR CONSULT: Hematochezia. HISTORY OF PRESENT ILLNESS: This is an 84-year-old male who was admitted to hospital after having several episodes of bloody stool. The patient reports that he has never had a colonoscopy and is on Plavix and aspirin for history of CVAs. The patient denies any upper GI symptoms as he denies nausea, vomiting, dyspepsia, GERD, and dysphagia. PAST MEDICAL HISTORY: Significant for history of CVA, dyslipidemia, hypertension, CABG in 1992, appendectomy. ALLERGIES: No known drug allergy. MEDICATIONS: Please refer to MAR. SOCIAL HISTORY: The patient lives at home. He is a former smoker, but currently does not smoke. Denies alcohol use. FAMILY HISTORY: Noncontributory. PHYSICAL EXAMINATION: VITAL SIGNS: Reveals blood pressure of 125/68, respirations of 14, pulse 62, temperature 36.1. LUNGS: Clear. CARDIOVASCULAR: Regular. ABDOMEN: Soft, nontender, nondistended. Bowel sounds are positive. LABORATORY DATA: Labs reveal WBC of 7.5, hemoglobin of 10.3, platelet is 134, chloride is 108, BUN is 15, creatinine 1.0, glucose is 95. ASSESSMENT AND PLAN: The patient with rectal bleeding, which has subsided. He is anemic and has never had a colonoscopy. [place] [address] CONSULTATION Name: ZARIA VILLEDA Johanna Room: [address]#: [id number] Admission: 12/13/19 Attend Phys: Brody Conde Discharge: 12/14/19 Date of : 37 Report #: [id number] tomorrow to further evaluate his lower GI bleed. We will continue to hold his Plavix and aspirin and make further recommendation after endoscopy. <ELECTRONICALLY SIGNED> By: Sharifa Chew MD 12/15/19 0149 1336 [id number] Chew MD /nt
--- NOTE | 2019-12-15 15:08 | PATH ---
[address] [address] PATHOLOGY RPT PROCEDURE Name: WILLIS VILLEDA Johanna Room: [address]#: [id number] Admission: 12/13/19 Date of : 37 Discharge: 12/14/19 Report #: [id number] Path Case #: [id number] [facility] Accession Number: [id number] . 01 Material submitted: . PART A: colon - ASCENDING COLON POLYP HOT SNARE. Modifiers: ascending PART B: colon - DESCENDING COLON BIOPSY X2 HOT SNARE. Modifiers: descending PART C: colon - SIGMOID COLON POLYP X2 HOT SNARE. Modifiers: sigmoid PART D: rectum - RECTAL POLYP HOT SNARE . 01 Clinical history: . GI bleed . 02 Diagnosis: A. Ascending colon polyp (hot snare): - Tubular adenoma, negative for high-grade dysplasia. . B. Descending colon polyp (biopsy x2 hot snare): - Two fragments of tubular adenoma(s), negative for high-grade dysplasia. . C. Sigmoid colon polyp (x2 hot snare): - Two segments of tubular adenoma(s), negative for high-grade dysplasia. . D. Rectal polyp (hot snare): - Tubular adenoma, negative for high-grade dysplasia. (VERONICA:[facility] 12/15/2019) [facility] 12/15/2019 1032 Local . 02 Electronically signed: . Daniel Juarez MD, Pathologist NPI- [id number] . 01 Gross description: . A. The specimen is received in formalin, labeled "Shy, Willis, ascending colon polyp" and consists of 2 fragments of pink-palacios tissue measuring 0.4 x 0.3 cm and 0.6 x 0.5 cm which are entirely submitted in A1. . B. The specimen is received in formalin, labeled "Shy, Willis, descending colon polyp" and "descending colon biopsy x2" per requisition. Received are 2 fragments of palacios tissue measuring 0.3 x 0.3 cm and 0.5 x 0.4 cm which are entirely submitted in B1. . C. The specimen is received in formalin, labeled "Shy, Willis, sigmoid colon polyp" and "sigmoid colon polyp x2" per requisition. Received are 2 polypoid segments of pink-palacios tissue measuring 0.9 x 0.6 x 0.3 cm and 0.6 x 0.6 x 0.3 cm. One margin is inked blue and one black. They are bisected and entirely submitted [place] [address] PATHOLOGY RPT PROCEDURE Name: WILLIS VILLEDA W Room: [address] IN [facility].#: [id number] Admission: 12/13/19 Date of : 37 Discharge: 12/14/19 Report #: [id number] Path Case #: [id number] D. The specimen is received in formalin, labeled "Rinne, Willis, rectal polyp" and consists of a segment of pink-palacios tissue measuring 0.6 x 0.4 x 0.3 cm. The margin is inked black. It is bisected and entirely submitted in D1. (SDY; 12/14/2019) SYU/SYU 12/14/2019 1545 Local . 02 Pathologist provided ICD-10: D12.2, D12.4, D12.5, D12.8 . 02 CPT . 419294, 257880, 373600, 985815 Specimen Comment: A courtesy copy of this report has been sent to [phone] Specimen Comment: [phone], Specimen Comment: Report sent to ,DR WILKS / DR ACUNA Specimen Comment: A duplicate report has been generated due to demographic updates. Performed at: [facility] [address], [place] [id number] MD Jayden Jacobs MD Phone: [phone] Performed at: [address] [facility] [address] [place], [place] [id number] MD Daniel Juarez MD Phone: [phone]
== END 2019-12-14 12:45 | disposition home or self-care (01) | DRG 393 ==
LOC: M.ERS 23:29 → M.2W 12-11 02:00 → M.TBA-ER 12-11 02:00 → M.2W 12-11 02:56
PROVIDERS: Emergency Medicine; Internal Medicine Gastroenterology; ADMIT Internal Medicine; ATTEND Internal Medicine
PROC: 0DBP8ZZ Excision of Rectum, Via Natural or Artificial Opening Endoscopic (ICD-10-PCS; principal; 2019-12-13)
PROC: 0DBM8ZZ Excision of Descending Colon, Via Natural or Artificial Opening Endoscopic (ICD-10-PCS; principal; 2019-12-13)
PROC: 0DBK8ZZ Excision of Ascending Colon, Via Natural or Artificial Opening Endoscopic (ICD-10-PCS; principal; 2019-12-13)
PROC: 0DBN8ZZ Excision of Sigmoid Colon, Via Natural or Artificial Opening Endoscopic (ICD-10-PCS; principal; 2019-12-13)
DX: K62.1 Rectal polyp (principal); K57.31 Diverticulosis of large intestine without perforation or abscess with bleeding; N17.9 Acute kidney failure, unspecified; D62 Acute posthemorrhagic anemia; D12.2 Benign neoplasm of ascending colon; K64.8 Other hemorrhoids; E78.5 Hyperlipidemia, unspecified; I10 Essential (primary) hypertension; E78.00 Pure hypercholesterolemia, unspecified; F17.210 Nicotine dependence, cigarettes, uncomplicated; I95.9 Hypotension, unspecified; Z79.899 Other long term (current) drug therapy; Z95.1 Presence of aortocoronary bypass graft; Z79.82 Long term (current) use of aspirin; Z79.02 Long term (current) use of antithrombotics/antiplatelets; Z86.73 Personal history of transient ischemic attack (TIA), and cerebral infarction without residual deficits; D12.4 Benign neoplasm of descending colon; D12.7 Benign neoplasm of rectosigmoid junction; D12.5 Benign neoplasm of sigmoid colon